=== PATIENT | female | born 1960 | race Caucasian/White ===

== ENCOUNTER 2016-07-07 16:56 | Emergency (ER) | payer OTHER ==
[2016-07-07] MEDS ORDERED: NS 0.9% 1000 ML* 1,000 ML IV ONE (17:30)
[2016-07-07 17:52] LABS: Urine Bacteria 1+ (Absent); Urine Bilirubin Negative (Negative); Urine Glucose Negative (Negative); Urine Nitrite Negative (Negative)
[2016-07-07 18:03] LABS: Hematocrit 37 % (35-47); Hemoglobin 12.8 g/dl (12.0-16.0); Mean Corpuscular HGB Conc 35 g/dl (31-36); Mean Corpuscular Hemoglobin 31 pg (27-31); Mean Corpuscular Volume 91 fL (80-97); Mean Platelet Volume 8 um3 (7.4-10.4); Red Cell Distribution Width 13 % (10.5-15); White Blood Count 7.6 10^3/ul (3.5-10.8)
[2016-07-07 18:18] LABS: ALT 10 U/L (7-52); Albumin 4.5 g/dL (3.2-5.2); Alkaline Phosphatase 62 U/L (34-104); BUN/Creatinine Ratio 15.6 (8-20); Blood Urea Nitrogen 15 mg/dL (6-24); C Reactive Protein < 1.00 mg/L (< 5.00); CO2 Carbon Dioxide 28 mmol/L (22-32); Calcium 9.4 mg/dL (8.6-10.3); Chloride 103 mmol/L (101-111); EGFR African American 77.3 (>60); EGFR Non-African American 60.1 (>60); Globulin 2.8 g/dL (2-4); Glucose 110 mg/dL (70-100); Lipase 42 U/L (11.0-82.0); Sodium 137 mmol/L (133-145); Total Protein 7.3 g/dL (6.4-8.9)
[2016-07-07 18:23] LABS: AST 12 U/L (13-39); Anion Gap 6 mmol/L (2-11); Potassium 3.5 mmol/L (3.5-5.0)
--- NOTE | 2016-07-07 18:24 | ED ---
Son Pearl Janilya, scribed for Adeline Jordan MD on 07/07/16 at 1732 . Abdominal Pain/Female - HPI Summary HPI Summary: A 55 y/o female came in to [facility] presenting w/ a gradual onset of constant RLQ abd pain starting this morning at 0600. Severity rated 4/10. The pain has increased in severity in the past hour. The pain radiates to back and produces a mild back pain that's of cramping character. Nothing makes the pain better or worse. There is also associated nausea that occurred earlier, but not now. Pt denies urinary Sx, diarrhea. LNMP years ago. PMHx hypercholesterolemia. - History of Current Complaint Chief Complaint: EDAbdPain Stated Complaint: LOWER RT ABD PAIN Onset/Duration: Gradual Onset, Lasting Hours, Still Present Timing: Constant Severity Initially: Moderate Severity Currently: Moderate Pain Intensity: 4 Pain Scale Used: 0-10 Numeric Location: Discrete At: RLQ Radiates: Yes Radiates to: Back Character: Dull Aggravating Factor(s): Nothing Alleviating Factor(s): Nothing Associated Signs and Symptoms: Positive: Nausea. Negative: Diarrhea Allergies/Adverse Reactions: Allergies Allergy/AdvReac Type Severity Reaction Status Date / Time Penicillins Allergy Rash Verified 07/07/16 17:15 Sulfa Drugs Allergy Rash Verified 07/07/16 17:15 Home Medications: Home Medications Flaxseed (Linseed) [Flax Seed Oil 1000 mg] 1 cap PO .EVERY OTHER DAY 07/07/16 [ History Confirmed 07/07/16] Red Yeast Rice Extract [Red Yeast Rice] 600 mg PO BID 07/07/16 [History Confirmed 07/07/16] PMH/Surg Hx/FS Hx/Imm Hx Previously Healthy: Yes Neurological History: Denies: Hx Dementia - Cancer History Hx Chemotherapy: No Hx Radiation Therapy: No Infectious Disease History: No Infectious Disease History: Denies: Traveled Outside the [place] in Last 30 Days - Family History Known Family History: Positive: Other - high cholesterol Negative: Cardiac Disease, Hypertension, Diabetes - Social History Lives: With Family Alcohol Use: None Hx Substance Use: No Hx Tobacco Use: No Review of Systems Positive: Abdominal Pain, Nausea. Negative: Diarrhea Positive: no symptoms reported All Other Systems Reviewed And Are Negative: Yes Physical Exam Triage Information Reviewed: Yes Vital Signs On Initial Exam: Initial Vitals Temp Pulse Resp BP Pulse Ox 97.7 F 72 16 108/58 98 07/07/16 17:15 07/07/16 17:15 07/07/16 17:15 07/07/16 17:15 07/07/16 17:15 Vital Signs Reviewed: Yes Appearance: Positive: Well-Appearing, No Pain Distress Skin: Positive: Warm, Skin Color Reflects Adequate Perfusion, Dry Eyes: Positive: EOMI, AMINA ENT: Positive: Pharynx normal, TMs normal Neck: Positive: Supple, Nontender Respiratory/Lung Sounds: Positive: Clear to Auscultation, Breath Sounds Present. Negative: Rales, Rhonchi, Wheezes Cardiovascular: Positive: RRR. Negative: Murmur, Rub, Other - no gallops Abdomen Description: Positive: Soft. Negative: Nontender - RLQ tenderness, no CVA tenderness, CVA Tenderness (R), CVA Tenderness (L), Distended, Guarding, Other: - no rebound Bowel Sounds: Positive: Present Musculoskeletal: Positive: Strength/ROM Intact. Negative: Edema Left, Edema Right Neurological: Positive: Sensory/Motor Intact, Alert, Oriented to Person Place, Time, CN Intact II-III Psychiatric: Positive: Affect/Mood Appropriate Diagnostics - Vital Signs Vital Signs Temp Pulse Resp BP Pulse Ox 07/07/16 17:15 97.7 F 72 16 108/58 98 - Laboratory Lab Results: Lab Results 07/07/16 07/07/16 07/07/16 Range/Units 17:38 17:50 17:50 WBC 7.6 (3.5-10.8) 10^3/ul RBC 4.10 (4.0-5.4) 10^6/ul Hgb 12.8 (12.0-16.0) g/dl Hct 37 (35-47) % MCV 91 (80-97) fL MCH 31 (27-31) pg MCHC 35 (31-36) g/dl RDW 13 (10.5-15) % Plt Count 278 (150-450) 10^3/ul MPV 8 (7.4-10.4) um3 Neut % (Auto) 54.6 (38-83) % Lymph % (Auto) 36.8 (25-47) % [place] % (Auto) 5.5 (1-9) % Eos % (Auto) 2.1 (0-6) % Baso % (Auto) 1.0 (0-2) % Absolute Neuts (auto) 4.2 (1.5-7.7) 10^3/ul Absolute Lymphs (auto) 2.8 (1.0-4.8) 10^3/ul Absolute Monos (auto) 0.4 (0-0.8) 10^3/ul Absolute Eos (auto) 0.2 (0-0.6) 10^3/ul Absolute Basos (auto) 0.1 (0-0.2) 10^3/ul Absolute Nucleated RBC 0.01 10^3/ul Nucleated RBC % 0.1 Sodium 137 (133-145) mmol/L Potassium Pending Chloride 103 (101-111) mmol/L Carbon Dioxide 28 (22-32) mmol/L Anion Gap Pending BUN 15 (6-24) mg/dL Creatinine 0.96 H (0.51-0.95) mg/dL Est GFR ( Amer) 77.3 (>60) Est GFR (Non-Af Amer) 60.1 (>60) BUN/Creatinine Ratio 15.6 (8-20) Glucose 110 H (70-100) mg/dL Lactic Acid (0.5-2.0) mmol/L Calcium 9.4 (8.6-10.3) mg/dL Total Bilirubin 0.30 (0.2-1.0) mg/dL AST Pending ALT 10 (7-52) U/L Alkaline Phosphatase 62 (34-104) U/L C-Reactive Protein < 1.00 (< 5.00) mg/L Total Protein 7.3 (6.4-8.9) g/dL Albumin 4.5 (3.2-5.2) g/dL Globulin 2.8 (2-4) g/dL Albumin/Globulin Ratio 1.6 (1-3) Lipase 42 (11.0-82.0) U/L Urine Color Straw Urine Appearance Clear Urine pH 5.0 (5-9) Ur Specific [place] 1.010 (1.010-1.030) Urine Protein Negative (Negative) Urine Ketones Negative (Negative) Urine Blood Negative (Negative) Urine Nitrate Negative (Negative) Urine Bilirubin Negative (Negative) Urine Urobilinogen Negative (Negative) Ur Leukocyte Esterase 1+ H (Negative) Urine WBC (Auto) Trace(0-5/hpf) (Absent) Urine RBC (Auto) Trace(0-2/hpf) (Absent) Urine Bacteria 1+ H (Absent) Urine Glucose Negative (Negative) Urine Ascorbic Acid * H (Negative) 07/07/16 Range/Units 17:50 WBC (3.5-10.8) 10^3/ul RBC (4.0-5.4) 10^6/ul Hgb (12.0-16.0) g/dl Hct (35-47) % MCV (80-97) fL MCH (27-31) pg MCHC (31-36) g/dl RDW (10.5-15) % Plt Count (150-450) 10^3/ul MPV (7.4-10.4) um3 Neut % (Auto) (38-83) % Lymph % (Auto) (25-47) % [place] % (Auto) (1-9) % Eos % (Auto) (0-6) % Baso % (Auto) (0-2) % Absolute Neuts (auto) (1.5-7.7) 10^3/ul Absolute Lymphs (auto) (1.0-4.8) 10^3/ul Absolute Monos (auto) (0-0.8) 10^3/ul Absolute Eos (auto) (0-0.6) 10^3/ul Absolute Basos (auto) (0-0.2) 10^3/ul Absolute Nucleated RBC 10^3/ul Nucleated RBC % Sodium (133-145) mmol/L Potassium Chloride (101-111) mmol/L Carbon Dioxide (22-32) mmol/L Anion Gap BUN (6-24) mg/dL Creatinine (0.51-0.95) mg/dL Est GFR ( Amer) (>60) Est GFR (Non-Af Amer) (>60) BUN/Creatinine Ratio (8-20) Glucose (70-100) mg/dL Lactic Acid 0.7 (0.5-2.0) mmol/L Calcium (8.6-10.3) mg/dL Total Bilirubin (0.2-1.0) mg/dL AST ALT (7-52) U/L Alkaline Phosphatase (34-104) U/L C-Reactive Protein (< 5.00) mg/L Total Protein (6.4-8.9) g/dL Albumin (3.2-5.2) g/dL Globulin (2-4) g/dL Albumin/Globulin Ratio (1-3) Lipase (11.0-82.0) U/L Urine Color Urine Appearance Urine pH (5-9) Ur Specific [place] (1.010-1.030) Urine Protein (Negative) Urine Ketones (Negative) Urine Blood (Negative) Urine Nitrate (Negative) Urine Bilirubin (Negative) Urine Urobilinogen (Negative) Ur Leukocyte Esterase (Negative) Urine WBC (Auto) (Absent) Urine RBC (Auto) (Absent) Urine Bacteria (Absent) Urine Glucose (Negative) Urine Ascorbic Acid (Negative) Result Diagrams: 07/07/16 17:50 07/07/16 17:50 Lab Statement: Any lab studies that have been ordered have been reviewed, and results considered in the medical decision making process. Abdominal Pain Fem Course/Dx - Course Course Of Treatment: 55 yo female with rlq since 630 am that has been consistent but not worsening at about a 4-5, she has had one episode of nausea normal bm's, no dysuria and is menopausal. She is currently waiting on a ct abd/ pelvis and will be signed out to Dr. valverde - Diagnoses Provider Diagnoses: Abdominal pain Discharge - Discharge Plan Condition: Stable Disposition: OTHER Discharge Disposition Comment: Signed out to next shift pending CT results. Referrals: Donald Dias MD [Primary Care Provider] - The documentation as recorded by the Son ibarra Janilya accurately reflects the service I personally performed and the decisions made by me, Adeline Jordan MD.
[2016-07-07] MEDS ORDERED: Iohexol 300* (CONTRAST) 10 ML SDV IV ONE (18:41)
--- NOTE | 2016-07-07 21:07 | RAD ---
CLINICAL HISTORY: Right lower quadrant pain COMPARISON: Similar CT examination dated September 06, 2011 TECHNIQUE: Contrast enhanced CT examination of the abdomen and pelvis from the lung bases through the initial tuberosities. The patient received 85 mL Omnipaque 300 intravenously prior to imaging.The patient received oral contrast as well prior to imaging. FINDINGS: VISUALIZED LUNG BASES: The visualized lung bases are grossly clear. There is no pleural effusion. ABDOMEN AND PELVIS: The liver, spleen, pancreas and adrenal glands are grossly normal in appearance. The gallbladder is normal. The kidneys are normal in appearance without focal mass, calcification or signs of hydronephrosis. There are contrast progressed as far as the hepatic flexure. The small and large bowel are not distended. Although there is no oral contrast in the lumen the appendix, it measures 4 mm in diameter and is mostly filled with air. There is no gross retroperitoneal or mesenteric lymphadenopathy. The pelvic viscera is normal in appearance. The abdominal aorta and iliac arteries are normal in course and diameter. Degenerative changes include multilevel loss of intervertebral disc height involving the lower thoracic and lumbar spine.There are no sinister bone lesions. IMPRESSION: No acute abnormalities that would account for the patient's current presentation.
[2016-07-07 22:16] VITALS: BP 100/73
--- NOTE | 2016-07-19 23:27 | ED ---
I, Mele Oliver, scribed for Serge Stewart MD on 07/07/16 at 2137 . Progress - Progress Note Progress Note: PATIENT SIGNED OUT BY DR. POSADA AT SHIFT CHANGE PENDING CT ABD/PEL IMAGING RESULTS. IMAGING REVIEWED AND DISCUSSED WITH THE PATIENT. - Results/Orders Results/Orders: CT ABD/PEL W IMPRESSION: No acute abnormalities that would account for the patient's current presentation. Re-Evaluation - Re-Evaluation First Eval Re-Evaluation Time: 21:51 Comment: Labs and imaging reviewed with the patient. Course/Dx - Diagnoses Provider Diagnoses: Abdominal pain Discharge - Discharge Plan Condition: Stable Disposition: HOME Patient Education Materials: Abdominal Pain (ED) Referrals: Donald Dias MD [Primary Care Provider] - The documentation as recorded by the kailaibBenito gonzales Billy accurately reflects the service I personally performed and the decisions made by me, Serge Stewart MD.
== END 2016-07-07 22:15 | disposition home or self-care (01) ==
LOC: ED 16:56
DX: R10.31 Right lower quadrant pain (principal); R11.0 Nausea
CPT/HCPCS: 36415; 74177; 80053; 81003; 81015; 83605; 83690; 85025; 86140; 87086; 93005; 99283; Q9967

== ENCOUNTER 2019-05-24 07:25 | Day surgery (SDC) | payer OTHER ==
[~2019-05-24 07:25] MED LIST: Buffered Lidocaine 1% SYRIN* 1 ML/SYRINGE INTRADERM ONE; Lactated Ringers 1000 ML Bag* 1,000 ML IV SCH
[2019-05-24] MEDS ORDERED: Buffered Lidocaine 1% SYRIN* 1 ML/SYRINGE INTRADERM ONE (07:54)
[2019-05-24] MEDS ORDERED: ceFOXitin 2 GM IVPREMIX* 2 GM/50 ML BAG ONE (07:54)
[2019-05-24] MEDS ORDERED: Ondansetron INJ* 2 MG/ML VIAL IV PRN (08:08)
[2019-05-24] MEDS ORDERED: Naloxone* 0.4 MG/ML 1 ML VIAL IV PRN (08:08)
[2019-05-24] MEDS ORDERED: HYDROmorphone INJ1* 1 MG/ML SYRINGE ONE ×2 (08:54→10:15)
[2019-05-24] MEDS ORDERED: Rocuronium* 10 MG/ML VIAL ONE (08:54)
[2019-05-24] MEDS ORDERED: Midazolam* 1 MG/ML 2 ML VIAL (2 MG) ONE (08:54)
[2019-05-24] MEDS ORDERED: Propofol* 10 MG/ML 20 ML BTL ONE (08:54)
[2019-05-24] MEDS ORDERED: Ondansetron INJ* 2 MG/ML VIAL ONE ×2 (09:25→10:22)
[2019-05-24] MEDS ORDERED: Dexamethasone IV* 4 MG/ML 1 ML (4 MG) ONE (09:25)
[2019-05-24] MEDS ORDERED: Ketorolac INJ* 30 MG/ML 1 ML VIAL ONE (09:35)
[2019-05-24] MEDS ORDERED: Sugammadex * 200 MG/2 ML VIAL IV PUSH ONE (09:40)
[2019-05-24] MEDS: HYDROmorphone INJ1* 1 MG/ML SYRINGE IV PRN ×2 (10:20→10:37)
[2019-05-24] MEDS ORDERED: PROCHLORPERAZINE INJ 5 MG/ML 2 ML VIAL ONE (12:26)
[2019-05-24 12:32] VITALS: BP 115/69
--- NOTE | 2019-05-24 20:57 | OP ---
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 OPERATIVE PROCEDURE: Appendectomy with partial cecectomy, robotic. 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 Risks of appendectomy and cecectomy included but not limited to bleeding, infection, anastomotic leak, injury to intraabdominal contents, explained to the patient, who seemed to understand and agreed to the procedure and all questions were answered. DESCRIPTION OF PROCEDURE: The patient was taken to operating room, placed supine. Preoperative antibiotics were given. After successful induction of general endotracheal anesthesia, the abdomen was prepped and draped in sterile fashion. A left upper quadrant 5-mm Optiview trocar was placed, bladeless, under direct visualization of the camera. A pneumoperitoneum was achieved to 12 mmHg. The abdomen was scanned. No obvious injuries were noted. A 12 mm subxiphoid trocar and 8 mm left lower quadrant trocar were placed and initial trocar was replaced with a robotic trocar. The patient was placed in a Trendelenburg position, tilted towards her left. Cecum was gently mobilized, revealing an appendix and the base of which was isolated and the mesoappendix was taken using cautery and bipolar cauterization of the artery in addition. The base of the appendix was then retracted up and a 45-mm stapler with a blue load was brought in and placed down along the cecum. So, a cuff of cecum was taken given adequate margins from the appendiceal base. The appendix was placed into an Endobag and removed through the 12-mm port site. The omentum was placed over the cecum and staple line. There was no bleeding during the case. The abdomen was scanned, no injuries were noted. The trocars were removed. The skin was closed with Monocryl and glue. The patient tolerated the procedure well. She taken to the recovery room in stable condition. [id number]/CPS #: [id number] MTDD
== END 2019-05-24 13:40 | disposition home or self-care (01) ==
LOC: OR 07:25
PROVIDERS: ATTEND Surgery
DX: K35.80 Unspecified acute appendicitis (principal); K38.1 Appendicular concretions; Z88.0 Allergy status to penicillin; E03.9 Hypothyroidism, unspecified
CPT/HCPCS: 44970; S2900; 88304; J0694; J0780; J1100; J1170; J1885; J2250; J2405; J2704